=== PATIENT | male | born 1960 | race Caucasian/White ===

== ENCOUNTER → 2017-01-20 | Outpatient (CLI) | payer BC ==
[~2017-01-20] MED LIST: ASPI81TA21 PO; IBUP-1277 PO; LISI10TA PO; MULTTAB58 PO
== END | disposition home or self-care (01) ==
LOC: C.RDSM 12:40
PROVIDERS: ATTEND Family Medicine
DX: M25.562 Pain in left knee (principal)

== ENCOUNTER 2017-06-06 05:15 | Observation (INO) | payer BC ==
[2017-05-31 09:17] VITALS: BMI 25.0
--- NOTE | 2017-05-31 09:38 | PAT Medication Instructions ---
Service Date May 31, 2017. Current Home Medication List Multiple Vitamin (Multivitamin), 1 TAB PO QAM Medication Instructions For Your Scheduled Surgery - Hold the following medications the morning of surgery: Multiple Vitamin (Multivitamin), 1 TAB PO QAM *NOTHING TO EAT OR DRINK AFTER MIDNIGHT* If you have any questions please call us at [phone] or [phone] or [phone]
[2017-05-31 11:20] LABS: BASO % 0.8 %; BASO ABS # 0.04 K/uL (0-0.2); COMPLETE YES; EOS % 1.8 %; HEMATOCRIT 45.9 % (42-52); LYMPH % 33.5 %; LYMPH ABS # 1.72 K/uL (1.2-3.4); MEAN CELL VOLUME 90.4 fL (80-100); MEAN CORPUSCULAR HEMOGLOBIN 30.9 pg (25-34); MEAN CORPUSCULAR HGB CONC 34.2 g/dl (32-36); MEAN PLATELET VOLUME 10.9 fL (7.4-10.4); NEUT % 55.9 %; PLATELET COUNT 190 K/uL (130-400); RED BLOOD COUNT 5.08 M/uL (4.7-6.1); WHITE BLOOD COUNT 5.14 K/uL (4.8-10.8)
[2017-05-31 11:29] LABS: BUN/CREATININE RATIO 14.9 (10-20); CALCIUM 9.4 mg/dl (8.5-10.1); CREATININE 1.13 mg/dl (0.60-1.40); POTASSIUM 4.6 mmol/L (3.5-5.1)
[2017-06-06] VITALS (10 sets, daily range): BP systolic 144–170; BP diastolic 87–99; PULSE 45–65; TEMP 36.5–36.9; O2SAT 95–99; Ht 185.4 cm; Wt 86.7 kg
[~2017-06-06] VITALS: Ht 185.4 cm; Wt 86.7 kg
[~2017-06-06 05:15] MED LIST changes: -ASPI81TA21 PO; -IBUP-1277 PO; -LISI10TA PO
[2017-06-06] MEDS ORDERED: LACTATED RINGER'S 1000ML 1,000 ML IV SCH ×2 (06:00→10:15)
[2017-06-06] MEDS ORDERED: CEFAZOLIN 2000MG IV PUSH 10 ML IV SCH (06:00)
[2017-06-06] MEDS ORDERED: LIDOCAINE HCL 1% 20 ML VIAL ONE (06:32)
[2017-06-06] MEDS ORDERED: CEFAZOLIN SOD 1 GM VIAL ONE (06:32)
[2017-06-06] MEDS ORDERED: BUPIVACAINE 0.5 % 5 MG/1 ML MPF 30ML VIAL ONE (06:33)
--- NOTE | 2017-06-06 06:39 | History & Physical Bridge Note ---
H&P Re-Evaluation Bridge Note: I have examined the patient, reviewed the History & Physical and in the interval since the performance of the History & Physical I have noted the following changes of clinical significance: No changes noted
[2017-06-06] MEDS ORDERED: FENTANYL CITRATE INJ 50 MCG/1 ML 2 ML VIAL ONE ×2 (06:48→08:13)
[2017-06-06] MEDS ORDERED: ROCURONIUM BROMIDE 10 MG/ML 5 ML VIAL IV ONE (06:48)
[2017-06-06] MEDS ORDERED: LIDOCAINE HCL 2% 2 ML VIAL (20MG/ML) ONE (06:48)
[2017-06-06] MEDS ORDERED: PROPOFOL IV EMULSION 10 MG/ML 20 ML VIAL IV ONE (06:48)
[2017-06-06] MEDS ORDERED: MIDAZOLAM HCL 1 MG/ML 2ML VIAL ONE (06:48)
[2017-06-06] MEDS ORDERED: ATROPINE SULFATE 0.1 MG/ML 5ML SYR IV PRN (07:00)
[2017-06-06] MEDS ORDERED: ONDANSETRON INJ 2 MG/ML 2 ML VIAL IV PRN ×2 (07:00→08:45)
[2017-06-06] MEDS ORDERED: FENTANYL CITRATE INJ 50 MCG/1 ML 2 ML VIAL IV PRN (07:00)
[2017-06-06] MEDS ORDERED: EpHEDrine SULFATE INJ 50 MG/ML AMP IV PRN (07:00)
[2017-06-06] MEDS ORDERED: ONDANSETRON INJ 2 MG/ML 2 ML VIAL ONE (07:14)
[2017-06-06] MEDS ORDERED: DEXAMETHASONE SOD INJ 4 MG/ML VIAL ONE (07:14)
[2017-06-06] MEDS ORDERED: GLYCOPYRROLATE INJ 0.2 MG/ML VIAL ONE ×2 (07:26→08:01)
[2017-06-06] MEDS ORDERED: NEOSTIGMINE METHYLSULFATE 5 MG/5 ML SYR ONE (07:26)
[2017-06-06] MEDS ORDERED: EpHEDrine SULFATE 50MG/5ML SYR ONE (08:06)
[2017-06-06] MEDS ORDERED: KETOROLAC TROMETHAMINE 30 MG/ML VIAL ONE (08:21)
--- NOTE | 2017-06-06 08:33 | [facility] Operative Report ---
Operative Report Operative Date Jun 06, 2017. Pre-Operative Diagnosis Bilateral Inguinal Hernias Post-Operative Diagnosis Bilateral Inguinal Hernias Procedure(s) Performed Bilateral Open Inguinal Hernia Repair Surgeon Dr Weinberg Hull Drafter Surgeon(s) Jamir Merino PA-C Estimated Blood Loss 10CC Findings B/L direct defects and Lg Rt lipoma Specimens A: Right Lipoma Anesthesia gen Complication(s) None Disposition Recovery Room / PACU I attest to the content of the Intraoperative Record and any orders documented therein. Any exceptions are noted below.
[2017-06-06] MEDS ORDERED: MoRPHine SULFATE 2 MG/ML CARP IV PRN (08:45)
[2017-06-06] MEDS ORDERED: PROMETHAZINE HCL INJ 25 MG in SODIUM CHLORIDE 0.9% 50ML 50 ML IV PRN (08:45)
[2017-06-06] MEDS ORDERED: IBUPROFEN 600 MG TAB PO PRN (08:45)
[2017-06-06] MEDS ORDERED: HYDROCODONE/ACETAMOPHEN 5/325MG TAB PO PRN ×2 (08:45)
[2017-06-06] MEDS ORDERED: MoRPHine SULFATE 4 MG/ML 1 ML CARP\\VIAL IV PRN (08:45)
--- NOTE | 2017-06-06 09:15 | Anesthesiology Progress Note ---
Anesthesia Post Op Note Date & Time Jun 06, 2017 at 09:15 Vital Signs Pain Intensity: 0 Vital Signs Past 12 Hours Date Time Temp Pulse Resp B/P (MAP) Pulse Ox O2 Delivery O2 Flow Rate FiO2 06/06/17 09:05 51 16 152/91 95 Room Air 06/06/17 08:55 54 16 156/93 100 Oxymask 10 06/06/17 08:45 55 16 149/95 100 Oxymask 10 06/06/17 08:37 36.4 65 16 166/98 100 Oxymask 10 06/06/17 05:42 36.5 45 20 99 Room Air Notes Mental Status: alert / awake / arousable, participated in evaluation Pt Amnestic to Procedure: Yes Nausea / Vomiting: adequately controlled Pain: adequately controlled Airway Patency, RR, SpO2: stable & adequate BP & HR: stable & adequate Hydration State: stable & adequate Anesthetic Complications: no major complications apparent
[2017-06-06] MEDS ORDERED: PROMETHAZINE HCL INJ 12.5 MG in SODIUM CHLORIDE 0.9% 50ML 50 ML IV PRN (09:30)
[2017-06-06] MEDS ORDERED: IV FLUIDS COMPLETED PRN (10:00)
--- NOTE | 2017-06-06 10:19 | OPERATIVE REPORT ---
DATE OF OPERATION: 06/06/2017 NAME OF OPERATION: Bilateral inguinal hernia repairs, open. PREOPERATIVE DIAGNOSIS: Bilateral inguinal hernias. POSTOPERATIVE DIAGNOSIS: Same. See findings. STAFF SURGEON: Andrés Weinberg MD. PUBLIC RELATIONS SENIOR ASSOCIATE: Rajan Merino PA-C. ANESTHESIA: General. FINDINGS: The patient had bilateral direct inguinal hernias with a large lipoma involving the right side. DESCRIPTION OF PROCEDURE: The patient was brought in the operating room and placed on the operating table in supine position. Kilgore catheter, pneumatic stockings and orogastric tube were placed. His abdomen was prepped and draped in usual fashion. The left side was approached first. Skin and subcutaneous tissue were anesthetized on both sides. After appropriate marking, an incision was made in the left lower quadrant parallel to the inguinal ligament, carrying dissection down, identifying the external oblique fibers, incising them along their length to the external ring. Cord structures were mobilized, identifying the ilioinguinal and iliohypogastric nerves. The patient had a direct inguinal hernia. At this point, a mesh plug was placed into the defect and then I used a relaxing incision above and partially reapproximated the transversalis fascia with the inguinal ligament, incorporating the mesh plug. A mesh patch was then placed in the floor of the canal around the cord structures over the mesh plug, secured to surrounding tissue using 2-0 Ethibond suture. The external oblique fibers were then closed over the mesh around the cord structures using 2-0 Ethibond suture. The site was irrigated with antibiotic solution and then anesthetized using 0.5% plain Marcaine. Subcutaneous tissues were reapproximated using 2-0 plain catgut suture then the skin reapproximated using 4-0 nylon suture and Steri-Strips. The right side was approached. A similar incision made carrying dissection down, identifying the external oblique fibers, incising them along their length. Upon mobilizing the cord structures and identifying the ilioinguinal and iliohypogastric nerves, the patient had a very large lipoma of the cord which was excised and ligated using 2-0 silk suture. The patient had a direct inguinal hernia which was repaired placing a mesh plug and then again using a relaxing incision above. The plug was secured using 2-0 Ethibond suture. Then a large mesh patch placed over the plug, around the cord structures, secured to surrounding tissue using 2-0 Ethibond suture. The external oblique fibers closed over the mesh and around the cord structures using 2-0 Ethibond suture, then the subcutaneous tissue reapproximated using 2-0 plain catgut suture, then the skin reapproximated using 4-0 nylon suture and Steri-Strips. Dressings were applied and patient transferred to recovery room in stable condition. My orthodontist assistant helped with prepping, draping, entering the wounds and then retraction and then closure of the wounds. I attest to the content of the Intraoperative Record and any orders documented therein. Any exception s are noted below.
[2017-06-06] MEDS ORDERED: CEPH500C2 PO (10:37)
[2017-06-06] MEDS ORDERED: HYDR-5688 PO (10:37)
--- NOTE | 2017-06-06 10:41 | Discharge Instructions ---
Discharge Instructions Date of Service Jun 06, 2017. Admission Reason for Admission: Bilateral Inguinal Hernia Discharge Discharge Diagnosis / Problem: Bilateral inguinal hernias Discharge Goals Goal(s): Decrease discomfort, Improve function, Improve disease control Activity Recommendations Activity Limitations: as noted below Lifting Limitations: no more than 25 pounds Exercise/Sports Limitations: until after follow-up appointment May Resume Sexual Activity: when tolerated Shower/Bathe: tomorrow Driving or Machine Use: 4-5 days . Instructions / Follow-Up Instructions / Follow-Up SPECIAL CARE INSTRUCTIONS: * Cover incisions and change daily for comfort/drainage. * Leave steri strips in place * Avoid constipation- may use Senokot S and Milk of magnesia twice daily as directed on the package * May use ibuprofen for pain as tolerated. * Expect some swelling and bruising. Call your doctor if: * Temperature above 101 degrees * Pain not relieved by pain medicine ordered * There is increased drainage or redness from any incision * You have any unanswered questions or concerns [phone]. FOLLOW UP VISIT: If not already scheduled, please call the office for a follow-up visit. for next week- some suture removal OFFICE PHONE NUMBER: Dr. Weinberg Office Current Hospital Diet Patient's current hospital diet: Regular Diet Discharge Diet Recommended Diet: Regular Diet Procedures Procedures Performed: Bilateral Open Inguinal Hernia Repair Pending Studies Studies pending at discharge: no Medical Emergencies . Who to Call and When: Medical Emergencies: If at any time you feel your situation is an emergency, please call 911 immediately. . Non-Emergent Contact Non-Emergency issues call your: Primary Care Provider, Surgeon . "Provider Documentation" section prepared by Andrés Weinberg. . VTE Core Measure Inpt VTE Proph given/why not?: SCD's
[2017-06-06] MEDS: DOCUSATE SODIUM/SENNA 50/8.6MG TAB PO SCH ×2 (12:46→20:23)
[2017-06-06] MEDS: CEFAZOLIN IV 1,000 MG in SYRINGE 0 ML IV SCH ×2 (14:25→20:24)
[2017-06-06] MEDS ORDERED: COUGH DROP (SUGAR FREE) LOZ 24 LOZ/1 BOX PO PRN (19:00)
[2017-06-07 01:35] VITALS: BP 137/75; PULSE 59
[2017-06-07 03:51] VITALS: BP 151/89; PULSE 51; TEMP 36.9; O2SAT 96
[2017-06-07] MEDS: CEFAZOLIN IV 1,000 MG in SYRINGE 0 ML IV SCH ×2 (04:09→08:28)
--- NOTE | 2017-06-07 06:40 | DISCHARGE SUMMARY ---
DATE OF DISCHARGE: 06/07/2017 PRINCIPAL DIAGNOSIS: Bilateral inguinal hernias. PROCEDURES: The patient underwent open bilateral inguinal hernia repair. HISTORY OF PRESENT ILLNESS: The patient is a 56-year-old male who had undergone prior laparoscopic inguinal hernia repairs on both sides with recurrence. HOSPITAL COURSE: The patient was brought in the hospital on 06/06/2017 where he underwent open bilateral inguinal hernia repair with mesh. The patient has done quite well overnight and has taken minimal pain medication. He has had some mild hypertension which he says is his norm. We will monitor this this morning, and if it persists, we may discuss it with the medical team and have it followed as an outpatient, but we will plan on discharging the patient today, to be followed in the surgical clinic within 1 week.
[2017-06-07 07:05] VITALS: BP 175/90; PULSE 48; TEMP 36.9; O2SAT 99
--- NOTE | 2017-06-07 07:42 | Anesthesiology Progress Note ---
Anesthesia Post Op Note Date & Time Jun 07, 2017 at 07:42 Vital Signs Pain Intensity: 2.0 Vital Signs Past 12 Hours Date Time Temp Pulse Resp B/P (MAP) Pulse Ox O2 Delivery O2 Flow Rate FiO2 06/07/17 03:51 36.9 51 16 151/89 (109) 96 Room Air 06/07/17 01:35 59 16 137/75 (95) 06/07/17 00:45 Room Air 06/06/17 23:04 170/89 (116) 06/06/17 23:01 36.6 57 16 160/87 (111) 97 Room Air 06/06/17 19:50 36.6 57 17 165/91 (115) 97 Room Air Notes Mental Status: alert / awake / arousable, participated in evaluation Pt Amnestic to Procedure: Yes Nausea / Vomiting: adequately controlled Pain: adequately controlled Airway Patency, RR, SpO2: stable & adequate BP & HR: stable & adequate Hydration State: stable & adequate Anesthetic Complications: no major complications apparent
[2017-06-07] MEDS: DOCUSATE SODIUM/SENNA 50/8.6MG TAB PO SCH (08:27)
[2017-06-07 09:19] VITALS: BP 154/85
[2017-06-07 09:20] VITALS: BP 154/85; PULSE 48; TEMP 36.9; O2SAT 99
== END 2017-06-07 10:30 | disposition home or self-care (01) ==
LOC: C.ACU 05:15 → C.MSN 08:38 → ENRESERV 09:12
PROVIDERS: ADMIT Surgery; ATTEND Surgery
DX: K40.20 Bilateral inguinal hernia, without obstruction or gangrene, not specified as recurrent (principal); I10 Essential (primary) hypertension; M19.90 Unspecified osteoarthritis, unspecified site; K21.9 Gastro-esophageal reflux disease without esophagitis